=== PATIENT | male | born 1955 | race Caucasian/White ===

== ENCOUNTER 2017-01-05 11:00 | Emergency (ER) | payer OTHER, MEDICAID ==
[~2017-01-05] VITALS: Ht 185.4 cm; Wt 99.8 kg
[2017-01-05 11:34] VITALS: BP 126/71
[2017-01-05] MEDS ORDERED: KETOROLAC TROMETHAMINE INJ 60 MG/2 ML VIAL IM ONE (12:00)
[2017-01-05] MEDS ORDERED: KETOROLAC TROMETHAMINE INJ 30 MG/ML VIAL ONE (12:03)
== END 2017-01-05 13:24 | disposition home or self-care (01) ==
LOC: ER 11:02
DX: S61.011A Laceration without foreign body of right thumb without damage to nail, initial encounter (principal); E03.9 Hypothyroidism, unspecified; Y99.9 Unspecified external cause status; X58.XXXA Exposure to other specified factors, initial encounter; Y93.89 Activity, other specified; Y92.89 Other specified places as the place of occurrence of the external cause
CPT/HCPCS: 73140; 96372; 99284; A4606; J1885; Z7610

== ENCOUNTER 2017-10-31 12:30 | Emergency (ER) | payer OTHER, MEDICAID ==
[~2017-10-31] VITALS: Ht 193 cm; Wt 113.4 kg
[2017-10-31 12:52] VITALS: BP 134/82
[2017-10-31] MEDS ORDERED: TDAP [DIPH/PERTUSSIS/TET] 0.5 ML VIAL IM ONE ×2 (13:20→13:30)
== END 2017-10-31 14:20 | disposition home or self-care (01) ==
LOC: ER 12:32
DX: S90.852A Superficial foreign body, left foot, initial encounter (principal); E03.9 Hypothyroidism, unspecified; W45.8XXA Other foreign body or object entering through skin, initial encounter; Y93.89 Activity, other specified; Y92.89 Other specified places as the place of occurrence of the external cause; Y99.8 Other external cause status
CPT/HCPCS: 73630; 90471; 90715; 99284; A4606; Z7610

== ENCOUNTER 2022-03-16 15:53 | Emergency (ER) | payer MEDICARE, OTHER ==
[~2022-03-16] VITALS: Ht 188 cm; Wt 98.4 kg
[2022-03-16 16:04] VITALS: BP 186/114
--- NOTE | 2022-03-16 16:05 | NUR ---
BIBS for BLE wound check. Denies pain. No s/s infection noted. Will continue to monitor the patient.
--- NOTE | 2022-03-16 16:24 | NUR ---
Patient discharged to home in stable condition. Written and verbal after care instructions given. Patient verbalizes understanding of instruction.
[2022-03-16] MEDS ORDERED: BACI/NEOM/POLY B OINT PKT 1 UDPKT PACKET TP ONE (16:30)
== END 2022-03-16 16:25 | disposition home or self-care (01) ==
LOC: ER 16:04
DX: Z48.00 Encounter for change or removal of nonsurgical wound dressing (principal); E03.9 Hypothyroidism, unspecified